=== PATIENT | female | born 1985 | race Two or more races ===

== ENCOUNTER 2017-08-11 20:03 | Inpatient (IN) | payer MEDICAID ==
[~2017-08-11] VITALS: Ht 152.4 cm; Wt 63.0 kg
[2017-08-11] MEDS ORDERED: DEXT 5%/LR + PITOCIN 20UNITS/L 1,000 ML IV SCH (20:17)
[2017-08-11] MEDS ORDERED: LACTATED RINGERS 1,000 ML IV SCH ×2 (20:17→20:45)
[2017-08-11] MEDS ORDERED: AMPICILLIN 1,000 MG in SODIUM CHLORIDE 0.9% 50 ML IV SCH (20:30)
[2017-08-11] MEDS ORDERED: BUTORPHANOL TARTRATE 2 MG/ML VIAL IV PRN (20:30)
[2017-08-11] MEDS ORDERED: MISOPROSTOL 100MCG TABLET VG SCH (20:30)
[2017-08-11] MEDS ORDERED: LIDOCAINE HCL 1% 20ML VIAL (Pyxis) INJ INFIL SCH (20:30)
[2017-08-11] MEDS ORDERED: AMPICILLIN 2,000 MG in SODIUM CHLORIDE 0.9% 100 ML IV SCH (20:30)
[2017-08-11 21:02] LABS: BASOPHILS % 0.3 % (0.0-2.0); EOSINOPHILS % 4.6 % (0.0-5.0); HEMATOCRIT. 34.9 % (36.0-48.0); HEMOGLOBIN. 11.4 g/dL (12.0-16.0); LYMPHOCYTES % 28.4 % (20.0-50.0); MEAN CORPUSCULAR HEMOGLOBIN 27.1 pg (28.0-32.0); MEAN CORPUSCULAR VOLUME 82.6 fL (81.0-99.0); MEAN PLATELET VOLUME 10.1 fl (7.4-10.4); MONOCYTES % 6.8 % (2.0-8.0); NEUTROPHILS % 59.9 % (40.0-76.0); PLATELET 148 x1000/uL (130-400); RED BLOOD CELL COUNT 4.22 mill/uL (4.2-5.4); RED CELL DISTRIBUTION WIDTH 16.4 % (11.6-14.6)
[2017-08-11 21:04] LABS: PARTIAL THROMBOPLASTIN TIME 27.5 sec (23.4-31.0); PROTHROMBIN TIME 10.1 sec (9.4-11.6)
[2017-08-11 21:33] LABS: HEPATITIS B SURFACE ANTIGEN NEGATIVE; RUBELLA IGG 75.5 IU/mL (4.99-10)
[2017-08-11] MEDS ORDERED: PNV1TABL76 PO (21:42)
[2017-08-11] MEDS ORDERED: NALOXONE HCL 0.4 MG/ML 1ML VIAL ONE (22:16)
[2017-08-11] MEDS ORDERED: BENZOCAINE/LANOLIN/ALOE VERA SPRAY TOP PRN (22:30)
[2017-08-11] MEDS ORDERED: IBUPROFEN 400MG TABLET PO PRN (22:30)
[2017-08-11] MEDS ORDERED: RHO(D) IMMUNE GLOBULIN 300 MCG/SYR IM PRN (22:30)
[2017-08-11] MEDS: DEXT 5%/LR + PITOCIN 20UNITS/L 1,000 ML IV SCH ×2 (22:32→23:09)
[2017-08-11] MEDS: ACETAMINOPHEN WITH CODEINE 300/30MG TABLET PO PRN (23:14)
[2017-08-11] MEDS ORDERED: METHYLERGONOVINE MALEATE 0.2 MG/ML IM PRN (23:45)
[2017-08-12] MEDS: IBUPROFEN 800MG TABLET PO PRN (00:42)
[2017-08-12] MEDS: DEXT 5%/LR + PITOCIN 20UNITS/L 1,000 ML IV SCH (00:48)
[2017-08-12 00:54] LABS: CLARITY URINE CLEAR (CLEAR); COLOR URINE YELLOW (YELLOW); GLUCOSE URINE 3+ (NEGATIVE); KETONES URINE NEGATIVE (NEGATIVE); LEUKOCYTE ESTERASE URINE NEGATIVE (NEGATIVE); NITRITE URINE NEGATIVE (NEGATIVE); OCCULT BLOOD URINE TRACE (NEGATIVE); PH URINE 6.5 (4.5-8.0); PROTEIN URINE NEGATIVE (NEGATIVE); SPECIFIC GRAVITY URINE 1.015 (1.005-1.030); UROBILINOGEN URINE 0.2 E.U./dL (0.2-1.0)
[2017-08-12 01:12] LABS: *AMPHETAMINES SCREEN URINE NEGATIVE (NEGATIVE); *BARBITURATES SCREEN URINE NEGATIVE (NEGATIVE); *BENZODIAZEPINES SCREEN URINE NEGATIVE (NEGATIVE); *COCAINE SCREEN URINE NEGATIVE (NEGATIVE); CANNABINOID URINE SCREEN NEGATIVE (NEGATIVE); METHADONE URINE SCREEN NEGATIVE (NEGATIVE); OPIATES URINE SCREEN NEGATIVE (NEGATIVE); PHENCYCLIDINE URINE SCREEN NEGATIVE (NEGATIVE)
[2017-08-12 01:20] VITALS: BP 106/69
[2017-08-12 01:45] VITALS: BP 108/63
[2017-08-12 02:20] VITALS: BP 105/66
[2017-08-12 08:00] VITALS: BP 99/53
[2017-08-12 08:26] LABS: BASOPHILS % 0.3 % (0.0-2.0); EOSINOPHILS % 1.1 % (0.0-5.0); HEMATOCRIT. 32.5 % (36.0-48.0); HEMOGLOBIN. 10.4 g/dL (12.0-16.0); LYMPHOCYTES % 19.8 % (20.0-50.0); MEAN CORPUSCULAR HEMOGLOBIN 26.5 pg (28.0-32.0); MEAN CORPUSCULAR VOLUME 82.6 fL (81.0-99.0); MEAN PLATELET VOLUME 10.6 fl (7.4-10.4); MONOCYTES % 5.1 % (2.0-8.0); NEUTROPHILS % 73.7 % (40.0-76.0); PLATELET 125 x1000/uL (130-400); RED BLOOD CELL COUNT 3.93 mill/uL (4.2-5.4); RED CELL DISTRIBUTION WIDTH 16.3 % (11.6-14.6)
[2017-08-12] MEDS ORDERED: SODIUM CHLORIDE 0.9% 10ML VIAL ONE (14:25)
[2017-08-12] MEDS ORDERED: CEFAZOLIN SODIUM 1000MG/VIAL ONE (14:26)
[2017-08-12] MEDS ORDERED: ONDANSETRON HCL 4MG/2ML VIAL ONE (14:26)
[2017-08-12] MEDS ORDERED: EPHEDRINE SULFATE 50MG/ML VIAL ONE (14:27)
[2017-08-12] MEDS ORDERED: MORPHINE SULFATE/PF 1MG/ML 10ML AMP ONE (14:32)
[2017-08-12] MEDS ORDERED: FENTANYL CITRATE/PF 50MCG/ML 2ML VIAL ONE (14:32)
[2017-08-12] MEDS ORDERED: NALOXONE HCL 0.4 MG/ML 1ML VIAL IV PRN (15:30)
[2017-08-12] MEDS ORDERED: DIPHENHYDRAMINE 50MG/ML VIAL IV PRN (15:30)
[2017-08-12] MEDS ORDERED: KETOROLAC 30MG/ML VIAL IV PRN (15:30)
[2017-08-12] MEDS ORDERED: ONDANSETRON HCL 4MG/2ML VIAL IV PRN (15:30)
[2017-08-12] MEDS ORDERED: BUTORPHANOL TARTRATE 2 MG/ML VIAL IV PRN (15:30)
[2017-08-12 18:26] VITALS: BP 101/62
[2017-08-12 21:00] VITALS: BP 92/56
[2017-08-13 00:30] VITALS: BP 90/57
[2017-08-13] MEDS: DIPHENHYDRAMINE 25MG CAPSULE PO PRN ×2 (01:39→10:20)
[2017-08-13 05:00] VITALS: BP 96/58
[2017-08-13] MEDS: IBUPROFEN 800MG TABLET PO PRN (05:00)
[2017-08-13] MEDS: ACETAMINOPHEN WITH CODEINE 300/30MG TABLET PO PRN ×2 (05:00→10:20)
[2017-08-13 08:00] VITALS: BP 91/56
[2017-08-13] MEDS ORDERED: TETANUS, DIPHTHERIA, PERTUSSIS VAC/PF 0.5ML (>7YR OLD) IM ONE (10:00)
== END 2017-08-13 12:45 | disposition home or self-care (01) | DRG 541 ==
LOC: L&D 20:03 → OBSVTOIN 20:03 → 7EST PP/OB 08-12 01:10 → L&D 08-12 16:37 → 7EST PP/OB 08-12 17:49
PROVIDERS: ADMIT Obstetrics & Gynecology; ATTEND Obstetrics & Gynecology
PROC: 0W8NXZZ Division of Female Perineum, External Approach (ICD-10-PCS; principal; 2017-08-11)
PROC: 10E0XZZ Delivery of Products of Conception, External Approach (ICD-10-PCS; 2017-08-12)
PROC: 0UB70ZZ Excision of Bilateral Fallopian Tubes, Open Approach (ICD-10-PCS; 2017-08-12)
DX: O80 Encounter for full-term uncomplicated delivery (principal); Z30.2 Encounter for sterilization; Z37.0 Single live birth; Z3A.40 40 weeks gestation of pregnancy
CPT/HCPCS: 36415; 80305; 81001; 85025; 85610; 85730; 86592; 86703; 86762; 86850; 86900; 87340; 88302; A4216; J0171; J0290; J0595; J0690; J1200; J2210; J2274; J2310; J2405; J2590; J3010; J3490; J7050; J7120; Q0163

== ENCOUNTER 2023-11-05 10:10 | Emergency (ER) | payer MEDICAID ==
[~2023-11-05] VITALS: Ht 157.5 cm; Wt 64.0 kg
[~2023-11-05 10:10] MED LIST: PNV1TABL76 PO
[2023-11-05 10:23] VITALS: O2SAT 99
[2023-11-05] MEDS ORDERED: ACETAMINOPHEN 325MG TABLET PO ONE (11:30)
[2023-11-05] MEDS ORDERED: CYCLOBENZAPRINE 10MG TABLET PO ONE (11:30)
[2023-11-05] MEDS ORDERED: KETOROLAC 60MG/2ML VIAL IM ONE (11:30)
[2023-11-05] MEDS ORDERED: NAPR-681 MT (12:02)
[2023-11-05] MEDS ORDERED: LIDO700A15 TP (12:02)
[2023-11-05] MEDS ORDERED: CYCL5TAB MT (12:02)
[2023-11-05 13:16] VITALS: BP 127/86; PULSE 89; RESP 18; TEMP 98.1
== END 2023-11-05 13:17 | disposition home or self-care (01) ==
LOC: ER 10:10
DX: S16.1XXA Strain of muscle, fascia and tendon at neck level, initial encounter (principal); E78.00 Pure hypercholesterolemia, unspecified; V49.49XA Driver injured in collision with other motor vehicles in traffic accident, initial encounter; Y93.89 Activity, other specified; Y92.89 Other specified places as the place of occurrence of the external cause; Y99.8 Other external cause status
CPT/HCPCS: 99283; 81025; 96372; J1885